=== PATIENT | female | born 1965 | race Caucasian/White ===

== ENCOUNTER 2025-03-12 13:43 | Emergency (ER) | payer MEDICAID ==
[~2025-03-12] VITALS: Ht 157.5 cm; Wt 99.3 kg
[2025-03-12 13:46] VITALS: TEMP 98.3
[2025-03-12 14:06] LABS: BASOPHILS # (AUTO) 0.1 K/uL (0.0-0.2); BASOPHILS % (AUTO) 1.1 % (0.0-2.0); EOSINOPHILS # (AUTO) 0.1 K/uL (0.0-0.7); EOSINOPHILS % (AUTO) 0.6 % (0.0-6.0); HEMATOCRIT 37 % (33-45); HEMOGLOBIN 12.3 g/dL (11.5-14.8); LYMPHOCYTES # (AUTO) 2.7 K/uL (0.8-4.8); LYMPHOCYTES % (AUTO) 30.2 % (20.0-44.0); MEAN CORPUSCULAR HEMOGLOBIN 31 PG (26.0-33.0); MEAN CORPUSCULAR HGB CONC 33 g/dl (31.0-36.0); MEAN CORPUSCULAR VOLUME 94 fL (82-100); MONOCYTES # (AUTO) 0.7 K/uL (0.1-1.30); MONOCYTES % (AUTO) 7.7 % (2.0-12.0); NEUTROPHILS # (AUTO) 5.4 K/uL (1.8-8.9); NEUTROPHILS % (AUTO) 60.4 % (43.0-81.0); PLATELET COUNT (AUTO) 271 K/uL (150-450); RED BLOOD CELL COUNT(AUTO) 3.92 MIL/uL (4.0-5.2); WHITE BLOOD COUNT (AUTO) 8.9 K/uL (4.3-11.0)
[2025-03-12 14:13] LABS: CALCIUM, SERUM 8.9 mg/dL (8.5-10.1); CREATININE 1.7 mg/dL (0.6-1.3); POTASSIUM 4.3 mmol/L (3.5-5.1)
[2025-03-12 14:19] LABS: ALBUMIN 3.1 g/dL (3.4-5.0); BILIRUBIN,TOTAL 0.2 mg/dL (0.2-1.0); TOTAL PROTEIN, SERUM 6.8 g/dL (6.4-8.2)
[2025-03-12] MEDS: IV NS 0.9% 1,000 ML BAG IV ONE ×2 (14:30→14:35)
[2025-03-12] MEDS ORDERED: MAG HYDROX/AL HYDROX/SIMETH 30 ML UDC ONE (14:38)
[2025-03-12] MEDS ORDERED: ONDANSETRON HCL/PF 4 MG/2 ML VIAL ONE (14:38)
[2025-03-12] MEDS: ONDANSETRON HCL/PF 4 MG/2 ML VIAL IVP ONE (14:38)
[2025-03-12] MEDS ORDERED: PANTOPRAZOLE 40 MG VIAL ONE (14:38)
[2025-03-12] MEDS: PANTOPRAZOLE 40 MG VIAL IV ONE (14:39)
[2025-03-12] MEDS: KETOROLAC TROMETHAMINE 15 MG/ML VIAL IV ONE (14:39)
[2025-03-12] MEDS ORDERED: MORPHINE SULFATE INJ 2 MG/ML DISP.SYRIN ONE (14:39)
[2025-03-12] MEDS: MORPHINE SULFATE INJ 2 MG/ML DISP.SYRIN IV ONE (14:40)
[2025-03-12] MEDS ORDERED: KETOROLAC TROMETHAMINE 15 MG/ML VIAL ONE (14:40)
[2025-03-12] MEDS: MAG HYDROX/AL HYDROX/SIMETH 30 ML UDC PO ONE (14:41)
[2025-03-12 14:45] LABS: APPEARANCE,URINE CLEAR (CLEAR); BILIRUBIN,URINE 1+ (NEGATIVE); BLOOD, URINE TRACE-INTA Ery/uL (NEGATIVE); COLOR,URINE YELLOW (YELLOW); KETONES,URINE TRACE mg/dL (NEGATIVE); LEUKOCYTE ESTERASE ,URINE 2+ (NEGATIVE); NITRITE, URINE NEGATIVE (NEGATIVE); PH,URINE 5.5 (5.0-8.0); PROTEIN,URINE 1+ mg/dl (NEGATIVE); UGLUCOSE NEGATIVE (NEGATIVE); UROBILINOGEN,URINE 0.2 EU/dL (0.2)
[2025-03-12] MEDS ORDERED: IV NS 0.9% 250 ML IV ONE (14:47)
[2025-03-12] MEDS ORDERED: IOHEXOL-300 100 ML VIAL IV ONE (14:47)
[2025-03-12] MEDS ORDERED: CT SWABBABLE VALVE TRANS SET 1 EA INFUS.SET MC ONE (14:48)
[2025-03-12 15:43] LABS: ADD URINE CULTURE YES; BACTERIA,URINE Many /HPF (None Seen); WBC,URINE 81-100 /HPF (0-3)
[2025-03-12 15:44] LABS: SQUAMOUS EPITHELIAL CELL,UR Many /HPF (None Seen)
[2025-03-12] MEDS ORDERED: KETO10TA2 PO (15:59)
[2025-03-12] MEDS ORDERED: NITR100C6 PO (15:59)
[2025-03-12 16:38] VITALS: BP 122/72; O2SAT 93
== END 2025-03-12 16:00 | disposition home or self-care (01) ==
LOC: ER 13:45
DX: K80.70 Calculus of gallbladder and bile duct without cholecystitis without obstruction (principal); N83.9 Noninflammatory disorder of ovary, fallopian tube and broad ligament, unspecified; N39.0 Urinary tract infection, site not specified; R10.13 Epigastric pain; I10 Essential (primary) hypertension; K59.00 Constipation, unspecified
CPT/HCPCS: 99285; 74177; 96374; 96375; 76705; 96361; 85025; 80048; 87086; 83690; 80076; 81001; 36415; J1885; J2405; J7030; J7050; J2470; J2270; Q9967; 87186-TC